=== PATIENT | female | born 2000 | race Caucasian/White ===

== ENCOUNTER 2022-07-08 13:20 | Emergency (ER) | payer MEDICAID ==
[~2022-07-08] VITALS: Ht 160 cm; Wt 63.5 kg
[2022-07-08 13:41] VITALS: BP_SYST 127
[2022-07-08] MEDS ORDERED: ONDA-8 TL (15:24)
[2022-07-08] MEDS ORDERED: MECL-225 PO (15:24)
[2022-07-08] MEDS ORDERED: ACET-2634 PO (15:24)
--- NOTE | 2022-07-08 15:27 | NUR ---
ER Dr. FARLEY IN TRIAGE examining patient.
--- NOTE | 2022-07-08 15:28 | NUR ---
PATIENT BROUGHT IN WITH FALL FOR HEADACHE AFTER FALL 3 DAYS AGO WITH DIZZINESS. DENIES ANY LOC. PAIN 07/11. DENES ANY NAUSEA OR VOMITING
[2022-07-08 15:38] VITALS: BP_SYST 116
--- NOTE | 2022-07-08 15:38 | NUR ---
Patient given written and verbal discharge instructions and verbalizes understanding. ER MD discussed with patient the results and treatment provided. Patient in stable condition. ID arm band removed. Rx of TYLENOL AND MECLINZINE AND ZOFRAN given. Patient educated on pain management and to follow up with PMD. Pain Scale 0/10 Opportunity for questions provided and answered. Medication side effect fact sheet provided.
== END 2022-07-08 15:38 | disposition home or self-care (01) ==
LOC: SED 13:20
DX: R51.9 Headache, unspecified (principal); F07.81 Postconcussional syndrome; R42 Dizziness and giddiness; Z79.899 Other long term (current) drug therapy
CPT/HCPCS: 99283